=== PATIENT | male | born 1960 | race Caucasian/White ===

== ENCOUNTER 2022-10-11 13:03 | Emergency (ER) | payer SELFPAY ==
[~2022-10-11] VITALS: Ht 175.3 cm; Wt 45.0 kg
[2022-10-11 13:08] VITALS: BP 121/55
== END 2022-10-11 14:49 | disposition left against medical advice (07) ==
LOC: ER 14:34
DX: R53.1 Weakness (principal); E03.9 Hypothyroidism, unspecified
CPT/HCPCS: 99283